=== PATIENT | male | born 1960 | race Caucasian/White ===

== ENCOUNTER 2019-12-01 01:47 | Emergency (ER) | payer OTHER, SELFPAY ==
[2019-12-01 01:53] VITALS: BP 167/89; PULSE 65; RESP 18; TEMP 36.4; O2SAT 95
--- NOTE | 2019-12-01 01:58 | ED_ITS ---
HPI - Eye Problem General Chief complaint: Eye Problems Stated complaint: head/eye swelling Time Seen by Provider: 12/01/19 01:50 Source: patient and family Mode of arrival: Ambulatory Limitations: no limitations History of Present Illness HPI Narrative: 59M nonsmoker with no significant medical history presents with the chief complaint of gradually worsening left eye pain, blurring, watering and left sided headache over the course of the day. He denies any recent injury, welding, grinding or exposure to UV light. He does wear contacts and removed them without any change in symptoms. He denies any painful rash or vesicles. He denies any pain in his left ear or left though does. Does admit to some light sensitivity. chief complaint: eye pain and vision change Onset (ago): hour(s) Onset description: gradual Duration: progressively worsening Location: left eye Eye Symptoms: pain, decreased vision and blurry vision Place: home Mechanism: none Severity: moderate If Pain, Quality: aching Context: contact lens use Associated symptoms: headache Treatments Prior to Arrival: none Related Data Patient tetanus UTD: Yes Previous Rx's Medication Instructions Recorded nifedipine See Rx Instructions .ROUTE 12/08/18 .COMPLEX #30 gram neomycin-polymyxin B-dexameth 2 drop EYE-LEFT Q4H #5 ml 12/01/19 [Maxitrol] Allergies Allergy/AdvReac Type Severity Reaction Status Date / Time No Known Drug Allergies Allergy Verified 12/01/19 02:01 Review of Systems Constitutional Constitutional: Denies chills, Denies fatigue, Denies fever(s), Denies frequent falls, Reports headache(s), Denies lethargy and Denies weakness Eyes Eyes: Reports blurry vision, Reports change in vision, Denies eye discharge, Denies irritation, Denies loss of vision, Reports eye pain and Reports photophobia ENT Ears, Nose, Mouth, and Throat: Denies change in voice, Denies dizziness, Reports headache(s), Denies neck pain, Denies sore throat and Denies throat swelling Cardiovascular Cardiovascular: Denies chest pain, Denies irregular heart rhythm, Denies lightheadedness, Denies palpitations, Denies dyspnea, Denies dyspnea on exertion and Denies orthopnea Respiratory Respiratory: Denies cough, Denies dyspnea, Denies dyspnea on exertion and Denies wheezing Gastrointestinal Gastrointestinal: Denies abdominal pain, Denies change in bowel habits, Denies diarrhea, Denies nausea and Denies vomiting Musculoskeletal Musculoskeletal: Denies neck pain and Denies numbness Integumentary/Breasts Skin/Breast: Denies pruritus, Denies erythema, Denies rash and Denies wounds Neurologic Neurologic: Denies behavioral changes, Denies confusion, Denies dizziness, Denies frequent falls, Reports headache(s), Denies loss of vision, Denies numbness and Denies weakness Psychiatric Psychiatric: Denies anxiety, Denies behavioral changes, Denies confusion, Denies depression, Denies homicidal ideation and Denies suicidal ideation Endocrine Endocrine: Denies fatigue, Denies flushing and Denies palpitations Hematologic/Lymphatic Hematologic/Lymphatic: Denies easy bruising Allergic/Immunologic Allergic/Immunologic: Denies urticaria, Denies throat swelling and Denies wheezing Patient History Family History Father Hypertension Cancer Mother Stroke Cancer Social History marital status: household members: spouse occupational status: employed Smoking Status: Never smoker alcohol intake: current substance use type: does not use Smoking Status: Never smoker Exam Narrative Exam Narrative: GEN: AOx3 and in mild distress, sitting in a dark room, obviously uncomfortable. EYES: Pupils are equal, round, and reactive to light and accommodation. Extraoccular muscles are intact bilaterally. Left eye with some scleral injection and watering. No purulence discharge. No foreign bodies noted, viewed under a Wood's lamp, upper lid everted. Contact has been removed. Significant improvement in discomfort with use of proparacaine. Small amount of fluorescein uptake noted under UV lamp consistent with ulcer CHEST: Lungs are clear to auscultation bilaterally and free of wheezes, rales, or rhonchi. Heart rate is regular rhythm, there are no murmurs, clicks, rubs, or gallops. There is no chest wall tenderness. ABD: Abdomen is soft and nontender. There is no guarding or rebound. Bowel sounds are normal in all 4 quadrants. There is no mass or organomegaly. EXT: Full painless ROM of all extremities with no loss of sensation or strength. SKIN: Warm, pink, and dry. 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 and will see patient tomorrow Orders Ordered: Discontinued Medications Hydrocodone Bitart/Acetaminophen (Vicodin 5/325 Prepack) 1 bottle MISC SEEINSTR ONE Stop: 12/01/19 03:32 Last Admin: 12/01/19 03:48 Dose: 1 bottle Documented by: JOHN Fluorescein Sodium (Ful-Soledad) 1 mg EYE-LEFT NOW ONE Stop: 12/01/19 01:56 Last Admin: 12/01/19 02:00 Dose: 1 mg Documented by: KRISTOFER Neomycin/Polymyxin/Dexamethasone (Maxitrol Ophth Susp) 1 drops EYE-LEFT QID JOSE JUAN Ofloxacin (Ocuflox 0.3% Ophth) 1 drops EYE-LEFT NOW ONE Stop: 12/01/19 03:47 Last Admin: 12/01/19 03:48 Dose: 1 box Documented by: JOHN Ondansetron HCl (Zofran Odt) 4 mg SL NOW ONE Stop: 12/01/19 02:19 Last Admin: 12/01/19 02:20 Dose: 4 mg Documented by: KRISTOFER Ondansetron HCl (Zofran Odt Prepack) 1 bottle MISC SEEINSTR ONE Stop: 12/01/19 03:32 Last Admin: 12/01/19 03:48 Dose: 1 bottle Documented by: JOHN Proparacaine HCl (Parcaine 0.5% Ophth Antonia) 1 drops EYE-LEFT NOW ONE Stop: 12/01/19 01:56 Last Admin: 12/01/19 02:00 Dose: 1 drop Documented by: KRISTOFER Vital Signs Vital signs: Vital Signs - 8 hr 12/01/19 01:53 Temperature 97.6 F Pulse Rate 65 Respiratory Rate 18 Blood Pressure 167/89 H Pulse Oximetry 95 Discharge Plan Departure Patient Disposition: Home Clinical Impression: Corneal ulcer Qualifiers: Laterality: left Qualified Code(s): H16.002 - Unspecified corneal ulcer, left eye Discharge Date/Time: 12/01/19 04:10 Instructions: DI for Corneal Ulcer Activity Restrictions/Additional Instructions: *You have been diagnosed with [ corneal ulcer ] *What to do: *Take medications as directed: Maxitrol 1-2 drops in left eye every 4 hours until you are seen by your eye doctor *Follow up with your eye doctor today, call for an appointment. Let them k now you were seen in the Emergency Department and that we ask that you be seen in follow up. If they cannot see you please call Dr. Stone at [facility] and he will see you today *Return to ER if you should have any new, worsening or concerning symptoms DO NOT WEAR CONTACTS UNTIL FOLLOW UP WITH YOUR EYE DOCTOR Prescriptions: New neomycin-polymyxin B-dexameth [Maxitrol] 3.5mg/mL-10,000 unit/mL-0.1 % drops,suspension 2 drop EYE-LEFT Q4H Qty: 5 RF: 0 No Action nifedipine 0.2 % cream See Rx Instructions .ROUTE .COMPLEX Qty: 30 RF: 2 Referrals: Shahab Stone MD [Physician] - George Villarreal MD [Primary Care Provider] -
[2019-12-01] MEDS: FLUORESCEIN 1 MG STRIP EYE-LEFT (02:00)
[2019-12-01] MEDS: PROPARACAINE 0.5% OPHTH SOL 1 DROPS EYE-LEFT (02:00)
[2019-12-01] MEDS: ONDANSETRON 4 MG ODT SL (02:20)
[2019-12-01] MEDS: OFLOXACIN 0.3% OPHTH 5 ML 1 DROPS EYE-LEFT (03:48)
[2019-12-01] MEDS: HYDROCODONE/ACET 5/325 PREPACK 1 BOTTLE MISC (03:48)
[2019-12-01] MEDS: ONDANSETRON 4 MG ODT PREPACK 1 BOTTLE MISC (03:48)
[2019-12-01 04:03] VITALS: BP 160/90; PULSE 60; RESP 18; O2SAT 95
== END 2019-12-01 04:10 | disposition home or self-care (01) ==
PROVIDERS: Emergency Provider Emergency Medicine; PCP Internal Medicine
DX: H16.002 Unspecified corneal ulcer, left eye (principal); R51 Headache
CPT/HCPCS: 99283; 99284

== ENCOUNTER → 2020-07-30 18:42 | Outpatient (ROUT) | payer OTHER, SELFPAY ==
[2020-07-30 19:41] LABS: Alanine Aminotransferase 27 IU/L (<50); Albumin 4.1 g/dL (3.5-5.0); Albumin Globulin Ratio 1.4 (1.0-2.8); Alkaline Phosphatase 70 U/L (38-126); Aspartate Aminotransferase 26 IU/L (17-59); BUN Creatinine Ratio 14.8 (6-22); Bilirubin Total 0.3 mg/dL (0.2-1.3); Blood Urea Nitrogen 12 mg/dL (9-20); Calcium 9.1 mg/dL (8.4-10.2); Carbon Dioxide 24 mmol/L (22-32); Chloride 106 mmol/L (98-107); Estimated Glomerular Filt Rate > 60.0 mL/min (>60); Globulin 2.9 g/dL (1.7-4.1); Glucose 99 mg/dL (70-100); HEMOLYSIS < 15 (0-50); Potassium 4.4 mmol/L (3.4-5.1); Sodium 139 mmol/L (137-145)
== END ==
PROVIDERS: PCP Internal Medicine; Visit Provider Internal Medicine
DX: M19.90 Unspecified osteoarthritis, unspecified site (principal)
CPT/HCPCS: 80053; 87081

== ENCOUNTER → 2020-08-06 20:18 | Outpatient (ROUT) | payer OTHER, SELFPAY | PROVIDERS: PCP Internal Medicine; Visit Provider Internal Medicine | DX: M19.90 Unspecified osteoarthritis, unspecified site (principal) | CPT/HCPCS: 87081 ==

== ENCOUNTER → 2020-08-23 09:15 | Outpatient (CLI) | payer OTHER, SELFPAY ==
[2020-08-23 10:24] LABS: COVID19 -Nasal RAPID Negative (Negative)
== END ==
PROVIDERS: PCP Internal Medicine; Visit Provider Specialist
DX: Z20.822 Contact with and (suspected) exposure to COVID-19 (principal)
CPT/HCPCS: 87635; C9803

== ENCOUNTER 2020-08-24 08:06 | Day surgery (SDC) | payer OTHER, SELFPAY ==
--- NOTE | 2020-08-24 | PATH_ITS ---
[facility] Accession Number: [id number] . 01 Material submitted: . ileo-cecal valve - ILEOCECAL VALVE POLYP . 02 Diagnosis: Ileocecal Valve, Polyp, Biopsy: Serrated lesion with a rare dilated crypt base, favor sessile serrated adenoma. Additional levels were examined. [facility] 08/31/2020 1405 Local . 02 Electronically signed: . Donya Dobbins MD, Pathologist NPI- [id number] . 01 Gross description: . The specimen is received in formalin, labeled ileocecal valve polyp, and consists of multiple nguyen-pink fragments of soft tissue measuring 1.0 x 0.8 x 0.2 cm in aggregate. The specimen is entirely submitted in cassette A1. ([id number]) /[facility] 08/25/2020 1700 Local . 02 Pathologist provided ICD-10: D12.6 . 02 CPT . 675824 Performed at: 01 [facility] [address], [place], [place] [id number] MD Gaurav Collado MD Phone: [phone] Performed at: 02 [facility] [address] [place], [place] [id number] MD Donya Dobbins MD Phone: [phone]
[2020-08-24 08:42] VITALS: BP 141/90; PULSE 66; RESP 16; TEMP 36.2; O2SAT 97; BMI 32.3
[2020-08-24] MEDS: LACTATED RINGERS 1,000 ML 200 ML IV (08:42)
--- NOTE | 2020-08-24 09:50 | PM.HP.1 ---
History of Present Illness History of Present Illness Date Patient Seen: 08/24/20 Time Patient Seen: 09:50 Chief complaint: DX COLONOSCOPY Narrative: Patient is a gentleman here for screening colonoscopy. His last exam was 5 years ago. In the interim he has had hemorrhoidal banding and has had no further bleeding since that was performed. His sister was recently diagnosed with colon cancer. He has had a polyp removed and tattooed in the past. Patient History Family & Social History Family History (Updated 08/24/20 @ 09:52 by Sathya Wang MD) Father Hypertension Cancer Mother Stroke Cancer Sister Cancer Social History: household members spouse Tobacco & Substance use: Smoking Status Never smoker alcohol intake current alcohol intake frequency a few times a week Substance Use Type marijuana Meds Home Medications and Allergies Home Medications Medication Instructions Recorded Confirmed Type No Known Home Medications 08/24/20 08/24/20 History Allergies Allergy/AdvReac Type Severity Reaction Status Date / Time No Known Drug Allergies Allergy Verified 08/24/20 08:36 Review of Systems Review of Systems ROS: Yes All systems reviewed with the patient and are negative except as otherwise documented Exam Vital Signs (past 8 hours): - 08/24/20 08:42 Temperature 97.1 F L Pulse Rate 66 Respiratory Rate 16 Blood Pressure 141/90 H Pulse Oximetry 97 Oxygen Delivery Method Room Air Narrative Exam Narrative: Pleasant cooperative patient no apparent distress. Lungs are clear to auscultation. No rales or rhonchi. Heart regular rate and rhythm no murmur gallop. Abdomen is soft nontender without mass. No obvious hernias. Patient is alert and oriented x3. Assessment & Plan Assessment & Plan narrative: The patient for a screening colonoscopy. I have discussed the procedure with them. Risks of bleeding, perforation which would necessitate major operation, failure to find remove all lesions, the potential tattoo were all discussed. All questions were answered. They wished to proceed.
--- NOTE | 2020-08-24 09:55 | PM.PREOP ---
Pre-operative Note COVID-19 COVID-19 status: Negative Result date/Date tested (Pos, Neg/Pending): 08/23/20 Interval Note History & Physical reviewed/Exam performed by Physician: Yes Changes to H&P: No ASA Class (for procedural sedation): I
[2020-08-24] MEDS: fentaNYL 250 MCG/5 ML INJ IV (10:21)
[2020-08-24] MEDS: MIDAZOLAM 5 MG/5 ML VIAL IV (10:21)
--- NOTE | 2020-08-24 10:37 | PM.OP.ENDO ---
Operative Date/Time/Diagnoses Date of procedure: 08/24/20 Time of procedure: 10:38 Pre-op diagnosis: Family history of colon cancer. Personal history of a sessile serrated adenoma. Last exam was 5 years ago. Post-op diagnosis: same Procedure & Clinicians Study performed: Colonoscopy with cold biopsy Same procedure as scheduled: Yes Indications: Screening high risk group. Surgeon: Sathya Wang Procedure Notes SCOAP/Timeout: Performed Procedure in detail: The patient was placed in the left lateral decubitus position and underwent IV sedation directed by the surgeon consisting of fentanyl and Versed. Digital exam was unremarkable. I really could not feel his prostate well however due to his anatomy and the length of my finger.. The scope was inserted and advanced through the rectum into the sigmoid, descending, transverse, and ascending colon. Pressure was applied and we made our way into the cecum. The. The cecum was reached identified by the ileocecal valve and the appendiceal opening. The ileocecal valve was successfully cannulated. The terminal ileum was normal in appearance. On the distal lip of the cecum there was a small raised lesion which may or may not have been polypoid. I chose to biopsy and completely remove it with multiple passes of the biopsy forceps. The scope was gradually brought out. No other Polyps were found. The scope ultimately was retroflexed in the rectum. The appearance was normal. I did not see evidence of hemorrhoidal disease at this time.. The scope was removed and the patient tolerated the procedure well. The prep was very good. Scope withdrawal time: 7-1/2 minutes Sedation minutes: 23 Findings: polyp (Possible polyp on the ileocecal valve) Specimen(s): other (Possible polyp) Complications: none Post-procedure Recommendations: Colonscopy in 5 years Follow up: as needed Disposition: PACU
[2020-08-24 10:41] VITALS: BP 108/73; PULSE 61; RESP 22; TEMP 36.2; O2SAT 97
[2020-08-24 10:46] VITALS: BP 121/73; PULSE 60; RESP 10; O2SAT 97
[2020-08-24 10:56] VITALS: BP 111/71; PULSE 58; RESP 11; O2SAT 98
[2020-08-24 10:59] VITALS: BP 123/85; PULSE 72; RESP 20; TEMP 36.3; O2SAT 94
[2020-08-24 11:05] VITALS: BP 115/80; PULSE 65; RESP 16; O2SAT 94
--- NOTE | 2020-08-24 11:15 | SUR.PHASEII ---
pt given discharge instructions. Pt denies any complaints. Pt states he is ready to go.
== END 2020-08-24 11:25 | disposition home or self-care (01) ==
PROVIDERS: PCP Internal Medicine; Referring Provider Internal Medicine; Visit Provider Specialist
PROC: 0DJD8ZZ Inspection of Lower Intestinal Tract, Via Natural or Artificial Opening Endoscopic (ICD-10-PCS; CPT 45378; principal; 2020-08-24 09:15)
DX: Z12.11 Encounter for screening for malignant neoplasm of colon (principal); Z80.0 Family history of malignant neoplasm of digestive organs; Z86.010 Personal history of colon polyps; D12.0 Benign neoplasm of cecum
CPT/HCPCS: 45380; 99152; J2250; J3010

== ENCOUNTER → 2022-05-23 06:57 | Outpatient (CLI) | payer OTHER, SELFPAY ==
[2022-05-23 08:04] LABS: Hematocrit 44.5 % (41-53); Hemoglobin 14.8 g/dL (13.5-17.5); Mean Corpuscular HGB Conc 33.3 % (30-36); Mean Corpuscular Hemoglobin 29.8 PG (26-34); Mean Corpuscular Volume 89.5 fL (80-100); Platelet Count 167 X10^3/uL (150-400); Red Blood Cell Count 4.98 X10^6/uL (4.5-5.9); Red Cell Distribution Width 13.9 % (11.6-14.8); White Blood Cell Count 6.5 X10^3/uL (4.5-11.0)
[2022-05-23 08:15] LABS: Alanine Aminotransferase 24 IU/L (<50); Albumin 4.2 g/dL (3.5-5.0); Albumin Globulin Ratio 1.3 (1.0-2.8); Alkaline Phosphatase 66 U/L (38-126); Aspartate Aminotransferase 21 IU/L (17-59); BUN Creatinine Ratio 19.7 (6-22); Bilirubin Total 0.7 mg/dL (0.2-1.3); Blood Urea Nitrogen 15 mg/dL (9-20); Calcium 8.4 mg/dL (8.4-10.2); Carbon Dioxide 24 mmol/L (22-32); Chloride 105 mmol/L (98-107); Cholesterol 216 mg/dL (140-199); Estimated Glomerular Filt Rate > 60 mL/min (>60); Globulin 3.2 g/dL (1.7-4.1); Glucose 95 mg/dL (70-100); HDL Cholesterol 42 mg/dL (40-60); HEMOLYSIS < 15 (0-50); LDL Cholesterol Calculated 149 mg/dL (<100); Sodium 138 mmol/L (137-145); Total Protein 7.4 g/dL (6.3-8.2); Triglycerides 125 mg/dL (35-150)
[2022-05-23 08:45] LABS: Prostate Specific Antigen Scrn 0.366 ng/mL (0.1-4.0)
[2022-05-23 08:47] LABS: TSH w/ Reflex to FT4 4.51 uIU/mL (0.47-4.68)
== END ==
PROVIDERS: PCP Internal Medicine; Referring Provider Internal Medicine; Visit Provider Internal Medicine
DX: Z00.00 Encounter for general adult medical examination without abnormal findings (principal); E78.2 Mixed hyperlipidemia; Z12.5 Encounter for screening for malignant neoplasm of prostate
CPT/HCPCS: 36415; 80053; 80061; 84443; 85027; G0103

== ENCOUNTER → 2023-08-17 14:07 | Outpatient (CLI) | payer OTHER, SELFPAY ==
--- NOTE | 2023-08-17 14:08 | DI.RAD.S_ITS ---
PROCEDURE: XR LUMBAR SPINE 2-3V INDICATIONS: right sciatica TECHNIQUE: 3 views of the lumbar spine were acquired. COMPARISON: None. FINDINGS: Bones: Mild degenerative changes. Disc space height loss particularly seen at L5-S1. Vertebral body heights are well maintained. No traumatic subluxation. Soft tissues: No suspicious calcifications. Partially seen right hip hardware. IMPRESSION: Mild degenerative changes. No acute radiographic abnormality. If there is high concern for further derangement, consider MRI evaluation. Dictated by: Maikel Quintero M.D. on 08/17/2023 at 16:47 Approved by: Maikel Quintero M.D. on 08/17/2023 at 16:47
[2023-08-17 16:09] LABS: Aspartate Aminotransferase 29 IU/L (17-59); BUN Creatinine Ratio 15.8 (6-22); Blood Urea Nitrogen 12 mg/dL (9-20); Calcium 8.8 mg/dL (8.4-10.2); Carbon Dioxide 24 mmol/L (22-32); Chloride 106 mmol/L (98-107); Cholesterol 222 mg/dL (140-199); Estimated Glomerular Filt Rate > 60 mL/min (>60); Glucose 92 mg/dL (80-110); HDL Cholesterol 55 mg/dL (40-60); HEMOLYSIS < 15 (0-50); LDL Cholesterol Calculated 132 mg/dL (<100); Potassium 4.4 mmol/L (3.4-5.1); Sodium 137 mmol/L (137-145); Triglycerides 175 mg/dL (35-150)
[2023-08-17 16:39] LABS: Prostate Specific Antigen Scrn 0.506 ng/mL (0.1-4.0)
== END ==
LOC: LAB 14:08
PROVIDERS: PCP Internal Medicine; Referring Provider Internal Medicine; Visit Provider Internal Medicine
DX: M54.50 Low back pain, unspecified (principal); G89.29 Other chronic pain; Z00.00 Encounter for general adult medical examination without abnormal findings; E78.2 Mixed hyperlipidemia; Z12.5 Encounter for screening for malignant neoplasm of prostate
CPT/HCPCS: 36415; 72100; 80048; 80061; 84450; G0103

== ENCOUNTER → 2024-08-17 10:51 | Outpatient (CLI) | payer BC, SELFPAY ==
[2024-08-17 12:05] LABS: Aspartate Aminotransferase 28 IU/L (17-59); BUN Creatinine Ratio 18.5 (6-22); Blood Urea Nitrogen 15 mg/dL (9-20); Calcium 9.2 mg/dL (8.4-10.2); Carbon Dioxide 22 mmol/L (22-32); Chloride 107 mmol/L (98-107); Cholesterol 169 mg/dL (140-199); Estimated Glomerular Filt Rate > 60 mL/min (>60); Glucose 101 mg/dL (70-99); HDL Cholesterol 64 mg/dL (40-60); HEMOLYSIS < 15 (0-50); LDL Cholesterol Calculated 81 mg/dL (<100); Potassium 4.2 mmol/L (3.4-5.1); Sodium 138 mmol/L (137-145); Triglycerides 118 mg/dL (35-150)
[2024-08-17 12:06] LABS: Hemoglobin A1C% w Est Avg Glu 4.9 % (4.0-6.0)
[2024-08-17 12:32] LABS: Prostate Specific Antigen Scrn 0.422 ng/mL (0.1-4.0)
[2024-08-17 19:44] LABS: HIV 1 & 2 Ab/Ag 4th Gen Combo NEGATIVE (NEGATIVE)
== END ==
PROVIDERS: PCP Internal Medicine; Referring Provider Internal Medicine; Visit Provider Internal Medicine
DX: E78.2 Mixed hyperlipidemia (principal); R73.01 Impaired fasting glucose; Z20.9 Contact with and (suspected) exposure to unspecified communicable disease; Z12.5 Encounter for screening for malignant neoplasm of prostate
CPT/HCPCS: 36415; 80048; 80061; 83036; 84450; 87389; G0103